=== PATIENT | female | born 1965 | race Hispanic/Latino ===

== ENCOUNTER 2020-05-22 19:23 | Emergency (ER) | payer SELFPAY ==
[2020-05-22] MEDS ORDERED: PANTOPRAZOLE SODIUM 40 MG TABLET.DR ONE (20:00)
== END 2020-05-22 20:09 | disposition home or self-care (01) ==
LOC: EDH 19:23
DX: K21.9 Gastro-esophageal reflux disease without esophagitis (principal); J30.89 Other allergic rhinitis; I10 Essential (primary) hypertension

== ENCOUNTER 2020-06-18 10:25 | Emergency (ER) | payer OTHER, SELFPAY | END 2020-06-18 12:15 | disposition home or self-care (01) | LOC: EDH 10:25 | DX: F41.1 Generalized anxiety disorder (principal); I10 Essential (primary) hypertension; M54.6 Pain in thoracic spine | CPT/HCPCS: 71045; 93005 ==

== ENCOUNTER 2022-04-20 18:29 | Emergency (ER) | payer OTHER, SELFPAY ==
[~2022-04-20] VITALS: Ht 154.9 cm; Wt 73.9 kg
[~2022-04-20 18:29] MED LIST: LISI1TAB49 PO
[2022-04-20 18:30] VITALS: BP 138/81
== END 2022-04-20 20:06 | disposition home or self-care (01) ==
LOC: EDH 18:29
DX: B34.9 Viral infection, unspecified (principal); I10 Essential (primary) hypertension; Z90.49 Acquired absence of other specified parts of digestive tract; Z79.899 Other long term (current) drug therapy
CPT/HCPCS: 87880

== ENCOUNTER 2024-12-23 07:55 | Emergency (ER) | payer BC, OTHER ==
[~2024-12-23] VITALS: Ht 154.9 cm; Wt 72.6 kg
[2024-12-23 07:58] VITALS: O2SAT 96
[2024-12-23] MEDS: acetaMINOPHEN/coDEINE 120/12MG 5ML PO ONE (08:25)
[2024-12-23] MEDS: 0.9%NACL 1000ML 1,000 ML IV ONE (08:26)
[2024-12-23 08:37] LABS: IMMATURE GRANULOCYTE ABSOLUTE 0.06 K/uL (0-1); NUCLEATED RED BLOOD CELLS 0.0 % (0.0-0.19); PLATELET COUNT (AUTO) 224 K/uL (130-400); RED BLOOD CELL COUNT(AUTO) 4.42 MIL/uL (4.00-5.50); RED CELL DISTRIBUTION WIDTH 12.9 % (11.0-15.5); WHITE BLOOD COUNT (AUTO) 9.6 K/uL (4.8-10.8)
[2024-12-23 08:45] LABS: APPEARANCE,URINE CLEAR (CLEAR); GLUCOSE, URINE (UA) NEGATIVE (NEGATIVE); LEUKOCYTE ESTERASE ,URINE NEGATIVE Leu/uL (NEGATIVE); NITRATE,URINE NEGATIVE (NEGATIVE); OCCULT BLOOD,URINE SMALL (NEGATIVE)
[2024-12-23 08:49] LABS: CREATININE 0.9 mg/dL (0.5-1.0); GLOMERULAR FILTR. RATE CALC 74.0 mL/min (>90); GLUCOSE,RANDOM 147.0 mg/dL (70-105); SODIUM SERUM 136.0 mmol/L (136-145); UREA NITROGEN, BLOOD 12.0 mg/dL (7-18)
[2024-12-23 08:56] LABS: ADD UA MICROSCOPIC YES
--- NOTE | 2024-12-23 08:57 | EKG ---
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
[2024-12-23 09:04] LABS: RAPID GROUP A STREP negative (NEGATIVE)
[2024-12-23 09:06] LABS: SQUAMOUS EPITHELIAL CELL,UR RARE /HPF (0-2); UNCLASSIFIED CRYSTAL 1 /HPF (None Seen)
[2024-12-23 09:09] LABS: SARS-CoV-2, RNA, NAAT POSITIVE SARS CoV-2 (NEGATIVE)
[2024-12-23 09:14] LABS: INFLUENZA TYPE A Negative For Type A (NEGATIVE); INFLUENZA TYPE B Negative For Type B (NEGATIVE)
--- NOTE | 2024-12-23 09:18 | HMCIMG ---
EXAM: CR Chest, single view. CLINICAL HISTORY: Cough. COMPARISON: None. FINDINGS: The lungs show no infiltrate or other acute findings. No pleural effusion or pneumothorax. The cardiomediastinal silhouette is within normal limits. No acute osseous abnormality. IMPRESSION: No acute cardiopulmonary pathology is evident. /[place]
[2024-12-23] MEDS ORDERED: LORA10TA7 PO (09:43)
[2024-12-23] MEDS ORDERED: FLUT16H NS (09:43)
--- NOTE | 2024-12-23 09:43 | ERN ---
General Chief Complaint: Cough Stated Complaint: COUGH Time Seen by MD: 07:56 Source: patient History of Present Illness Initial Comments Patient is a 59-year-old female coming in complaining of URI symptoms. Per patient this has been ongoing for three days. Patient was evaluated by her PCP started on medication but states he does not working. Patient is here for further evaluation. Allergies: Coded Allergies: No Known Allergies (Unverified Allergy, Unknown, 06/18/20) Home Meds Reported Medications Lisinopril/Hydrochlorothiazide (Lisinopril-Hctz 10-12.5 mg Tab) 1 Each Tablet, 1 EACH PO DAILY, TAB 02/24/22 Past Medical History Past Medical History: Diabetes-Type II, Hypertension Past Surgical History: Other Surgical History Other: right masectomy Family History Family History: HTN Social History Social History: Negative, Lives with family ROS Dictation CONSTITUTIONAL: No chills, no fever, no weakness, no diaphoresis, no malaise. HEAD/FACE: No signs of trauma. EENT: No eye pain, no blurred vision, no tearing, no double vision, no ear p ain, no ear discharge, no nose pain, no nasal congestion, throat pain, no throat swelling, no mouth pain. RESPIRATORY: cough, no orthopnea, no SOB, no stridor, no wheezing. CARDIOVASCULAR: No chest pain, no edema, no palpitations, no syncope. GASTROINTESTINAL/ABDOMINAL: No abdominal pain, no constipation, no diarrhea, no nausea, no vomiting. GENITOURINARY: No abnormal discharge, no dysuria, no frequent urination, no hematuria. No complaints of pain in the genitals. MUSCULOSKELETAL: No back pain, no gout, no joint pain, no joint swelling, no muscle pain, no muscle stiffness, no neck pain. INTEGUMENTARY: No change in color, no change in hair/nails, no dryness, no lesion, no lumps, no rash. NEUROLOGICAL/PSYCH: No anxiety, not depressed, no emotional problem, no headache, no numbness, no pre-existing deficit, no history of seizures, no tremors, no weakness. HEMATOLOGIC/LYMPHATIC: Not anemic, no history of blood clots, no apparent bleeding, no bruising, glands not swollen. All Systems Negative, Except as Noted. Physical Exam Physical Exam Dictation VITAL SIGNS: Reviewed. GENERAL APPEARANCE: Alert, oriented x3, no acute distress, obese. HEAD AND FACE: Non-traumatic. EYES: PERRL, pink conjunctivas, eyelid no trauma, anterior chamber clear. EARS: Pinnas intact and no signs of trauma or erythema. Ear canals clear and no discharge. TMs no erythema. NOSE: No discharge, no bleeding. OROPHARYNX: Mouth normal, teeth no caries, tongue pink. Pharynx erythema. Tonsils no exudates, no abscesses noted. Mucous membrane moist. NECK: Supple, non-tender, no thyromegaly, no masses, no JVD, no bruits. BREAST: Deferred. CHEST: No tenderness, no crepitus, no paradoxical movement, no retractions. LUNGS: Clear, well-ventilated, symmetric, no rales, no wheezing, no rhonchi, no stridor, good breath sounds bilaterally. HEART: Regular rate, regular rhythm, no murmur, no gallops. VASCULAR: No peripheral edema. ABDOMEN: Soft, positive bowel sounds, nondistended, no guarding, nontender, no rebound, no masses no hepatomegaly, no splenomegaly, no Garza's sign, no hernias. RECTAL: Deferred. GENITAL: Deferred. NEUROLOGICAL: Normal speech, gross motor function intact, gross sensory function intact. MUSCULOSKELETAL: Neck nontender, full range of motion, back nontender, full range of motion. EXTREMITIES: Nontender, full range of motion. SKIN: Color pink, dry, no turgor, no rash, no lacerations, no abrasions, no contusions. LYMPHATICS: Deferred. Results Laboratory and Microbiology Lab and Micro Result Laboratory Tests Test 12/23/24 08:30 12/23/24 08:49 White Blood Count 9.6 K/uL (4.8-10.8) Red Blood Count 4.42 MIL/uL (4.00-5.50) Hemoglobin 13.0 g/dL (12.0-16.0) Hematocrit 37.9 % (36-48) Mean Corpuscular Volume 85.7 fL (79-99) Mean Corpuscular Hemoglobin 29.4 pg (27.0-33.0) Mean Corpuscular Hemoglobin Concent 34.3 g/dL (32.0-36.0) Red Cell Distribution Width 12.9 % (11.0-15.5) Platelet Count 224 K/uL (130-400) Mean Platelet Volume 10.5 fL (7.5-10.5) Immature Granulocyte % (Auto) 0.6 % (0-1) Neutrophils (%) (Auto) 85.1 % (40.0-77.0) H Lymphocytes (%) (Auto) 6.3 % (21.0-51.0) L Monocytes (%) (Auto) 6.8 % (3.0-13.0) Eosinophils (%) (Auto) 0.8 % (0.0-8.0) Basophils (%) (Auto) 0.4 % (0.0-5.0) Neutrophils # (Auto) 8.2 K/uL (1.8-7.7) H Lymphocytes # (Auto) 0.6 K/uL (1.0-4.8) L Monocytes # (Auto) 0.7 K/uL (0.1-1.0) Eosinophils # (Auto) 0.08 K/uL (0.00-0.70) Basophils # (Auto) 0.04 K/uL (0.00-0.20) Absolute Immature Granulocyte (auto 0.06 K/uL (0-1) Nucleated Red Blood Cells 0.0 % (0.0-0.19) White Cell Morphology Comment See comments Urine Color LIGHT-YELLOW (YELLOW) Urine Appearance CLEAR (CLEAR) Urine pH 5.0 (5.0-8.0) Urine Specific [place] 1.016 (1.001-1.031) Urine Protein NEGATIVE mg/dL (NEGATIVE) Urine Glucose (UA) NEGATIVE mg/dL (NEGATIVE) Urine Ketones NEGATIVE mg/dL (NEGATIVE) Urine Occult Blood SMALL (NEGATIVE) H Urine Nitrate NEGATIVE (NEGATIVE) Urine Bilirubin NEGATIVE mg/dL (NEGATIVE) Urine Urobilinogen 0.2 mg/dL (0.2-1.0) Urine Leukocyte Esterase NEGATIVE [place]/uL Urine RBC 0-1 /HPF (0-1) Urine WBC 0-1 /HPF (0-1) Urine Squamous Epithelial Cells RARE /HPF (0-2) Urine Uric Acid Crystals Rare /LPF (None Seen) H Urine Other Crystals (Auto) 1 /HPF (None Seen) Urine Bacteria None /HPF (None Seen) Sodium Level 136 mmol/L (136-145) Potassium Level 3.4 mmol/L (3.5-5.1) L Chloride Level 100 mmol/L (101-111) L Carbon Dioxide Level 24 mmol/L (21-32) Blood Urea Nitrogen 12 mg/dL (7-18) Creatinine 0.9 mg/dL (0.5-1.0) Glomerular Filtration Rate Calc 74 mL/min (>90) Random Glucose 147 mg/dL (70-105) H Total Calcium 9.2 mg/dL (8.5-10.1) Influenza Type A Antigen Negative For Type A Influenza Type B Antigen Negative For Type B SARS-CoV-2, RNA, NAAT POSITIVE SARS CoV-2 Group A Streptococcus Rapid negative (NEGATIVE) Labs Reviewed?: Yes EKG/XRAY/US/CT/MRI EKG Comment 12/23/2024 time 8:12 a.m. Ventricular rate [address] [place] [address] wave elevation or depression X-RAY Comment IMAGING REPORT Signed PATIENT: GLYNN DAVIS MR#: [id number] : 1965 SEX: F AGE: 59 LOCATION: [facility] ORDER 1 STATUS: [facility] ER REPORT#: [id number] SERVICE 0 REASON: cough ORDERING PHYSICIAN: MARTINEZ DAUGHERTY MD PROCEDURE: CXR1VW - CHEST 1VW EXAM: CR Chest, single view. CLINICAL HISTORY: Cough. COMPARISON: None. FINDINGS: The lungs show no infiltrate or other acute findings. No pleural effusion or pneumothorax. The cardiomediastinal silhouette is within normal limits. No acute osseous abnormality. IMPRESSION: No acute cardiopulmonary pathology is evident. /[place] DICTATED BY: MARELY MARSH Jr., MD DATE: 12/23/241017 ELECTRONICALLY SIGNED BY: MARELY MARSH Jr., MD DATE: 12/23/241017 [facility] MDM: Differential diagnosis: Seizures, COVID, flu, strep sinusitis, URI, Rationale: Tests considered and ordered secondary to shared decision making include: Previous outside records reviewed: Old ER visits. Risk of complication and/or morbidity or mortality of patient management: None Medications-Per medication reconciliation Need for hospitalization: Patient does not meet criteria for hospitalization. Need for emergency major/minor surgery: No In his is a 59-year-old female coming in complaining of URI symptoms. Upon evaluation in triage patient was tachycardic so laboratory workup was collected patient is positive for COVID. Patient was hydrated with IV fluids and given some steroids states he feels much better we will be discharged in stable condition with a diagnosis of COVID and dehydration. ED Course Orders Procedure Category Date Status Time Dexamethasone 4mg/Ml PHA 12/23/24 Complete 1ml Vial (Dexametha 08:00 Acetaminophen-Codeine PHA 12/23/24 Complete Elixer (Tylenol-Co 08:00 Cbc With Differential LAB 12/23/24 Complete 08:01 Urinalysis Profile LAB 12/23/24 Complete 08:01 12 Lead Ekg Tracing- EKG 12/23/24 Complete Technical 08:01 0.9%Nacl 1000ml (Ns PHA 12/23/24 Complete 1000ml) 08:30 Chest 1vw RAD 12/23/24 Resulted 08:01 Basic Metabolic Panel LAB 12/23/24 Complete 08:01 Covid Rna Naat LAB 12/23/24 Complete 08:02 Influenza Type A & B, LAB 12/23/24 Complete Rapid 08:02 Rapid (Group A Strep) LAB 12/23/24 Complete 08:02 Current Medications Medications (Trade) Dose Ordered Sig/Suzy Route PRN Reason Start Time Stop Time Status Last Admin Dose Admin Acetaminophen/ Codeine Phosphate (TYLenol-coDEINE (120/12MG 5ML) ELIXIR) 5 ml ONCE ONCE PO 12/23/24 08:00 12/23/24 08:03 DC 12/23/24 08:25 Dexamethasone Sodium Phosphate (dexaMETHasone 4MG/ML 1ML VIAL) 4 mg ONCE ONCE IM 12/23/24 08:00 12/23/24 08:03 DC 12/23/24 08:26 Sodium Chloride 1,000 ml @ 0 mls/hr ONCE ONCE IV 12/23/24 08:30 12/23/24 08:31 DC 12/23/24 08:26 Vital Signs Date Time Temp Pulse Resp B/P (MAP) Pulse Ox O2 Delivery O2 Flow Rate FiO2 12/23/24 07:58 100.0 115 20 120/79 96 Room Air* 0 21 12/23/24 07:55 100.0 115 20 120/79 96 Room Air 0 DX & DISP Disposition: Discharge Departure Impression: Primary Impression: COVID-19 Additional Impression: Dehydration Condition: Stable Scripts Loratadine (Loratadine) 10 Mg Tablet 1 TAB PO DAILY for allergy symptoms for 30 Days, #30 TAB 0 Refills Prov: MARTINEZ DAUGHERTY MD 12/23/24 Fluticasone Propionate (Flonase Nasal [facility]) 50 Mcg/Actuation [facility] 2 SPRAY NS DAILY, #16 GM 0 Refills Prov: MARTNIEZ DAUGHERTY MD 12/23/24 Additional Instructions: FOLLOW-UP WITH PRIMARY CARE PROVIDER IN 1 TO 2 DAYS. TAKE MEDICATIONS DIRECTED HERE IN THE EMERGENCY ROOM. OKAY TO CONTINUE HOME MEDICATIONS UNLESS OTHERWISE DISCUSSED DURING YOUR VISIT IN THE EMERGENCY ROOM TODAY. RETURN TO YOUR NEAREST EMERGENCY ROOM IF SYMPTOMS WORSEN OR IF THERE IS NO IMPROVEMENT. CALL 911 IF YOU NEED IMMEDIATE ASSISTANCE. TAKE TYLENOL [id number] NEEDED AND IF NO CONTRAINDICATIONS ARE PRESENT. INCREASE ORAL HYDRATION. A WOUND CULTURE OR URINE CULTURE WAS ORDERED HERE IN THE EMERGENCY ROOM DEPARTMENT PLEASE FOLLOW-UP WITH PRIMARY CARE PROVIDER AND ADVISE THEM TO GET REPORTS FROM OUR FACILITY. IF YOU HAD ANY GHAZALA WRAP/SPLINTS THAT WERE APPLIED HERE, PLEASE DO NOT REMOVE THEM UNTIL YOU SEE YOUR PRIMARY CARE OR SPECIALTY. Referrals: Referrals: SELF,REFERRAL (PCP) CHET MORRELL MD Time of Disposition: 09:42 MARTINEZ DAUGHERTY MD Dec 23, 2024 09:43
[2024-12-23 10:03] VITALS: BP 101/58; PULSE 92; RESP 20; TEMP 98.6
== END 2024-12-23 10:13 | disposition home or self-care (01) ==
LOC: EDH 07:55
DX: U07.1 COVID-19 (principal); E86.0 Dehydration; E11.9 Type 2 diabetes mellitus without complications; I10 Essential (primary) hypertension; Z79.899 Other long term (current) drug therapy; Z90.11 Acquired absence of right breast and nipple
CPT/HCPCS: 99284; 96360; 71045; 87635; 80048; 85025; 87880; 87804 ×2; 81001; 36415; 93005; 96372; J1100; J7030